=== PATIENT | male | born 1980 | race Caucasian/White ===

== ENCOUNTER 2018-10-14 04:28 | Emergency (ER) | payer OTHER ==
[~2018-10-14] VITALS: Ht 170.2 cm; Wt 72.6 kg
[2018-10-14 04:28] VITALS: BP 134/82
--- NOTE | 2018-10-14 04:28 | NUR ---
PT AMBULATED TO CHAIR E.
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
--- NOTE | 2018-10-14 04:41 | NUR ---
Dr. Borja evaluating patient
[2018-10-14 05:53] VITALS: BP 134/82
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
== END 2018-10-14 05:54 ==
LOC: MED 04:28
DX: Z04.1 Encounter for examination and observation following transport accident (principal); F10.129 Alcohol abuse with intoxication, unspecified; Y90.9 Presence of alcohol in blood, level not specified
CPT/HCPCS: 70450; 72125; 99284